=== PATIENT | male | born 1970 | race Caucasian/White ===

== ENCOUNTER 2020-01-25 02:41 | Observation (INO) | payer OTHER ==
[~2020-01-25] VITALS: Ht 175.3 cm; Wt 100.2 kg
[2020-01-25] VITALS (8 sets, daily range): BP systolic 113–148; BP diastolic 73–88
--- OUTSIDE RECORDS SUMMARY | 2020-01-25 02:44 | XMS REPORT | Continuity of Care Document ---
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 Allergies, Adverse Reactions, Alerts Allergy Name Allergy Type Status Severity Reaction(s) Onset Date Inacti ve Date Treating Clinician Comments Source Penicillins DA Active SV 2013-01-07 00:00:00 [facility] Medications This patient has no known medications. Procedures This patient has no known procedures. Results Test Description Test Time Test Comments Results Result Comments Source - MRI L-SPINE W/O CONT 2019-07-21 09:15:00 Kiya ent Name: BERNADETTE VELASQUEZ Unit No: [id number] EXAMS: CPT CODE: [id number] MRI L-SPINE W/O CONT 57521 TECHNIQUE: Multiplanar, multisequence MRI examination performed of the lumbar spine without intravenous contrast material. COMPARISON: Concurrent radiograph FINDINGS: Five lumbar type vertebra are assumed. Alignment: Grade 1 retrolisthesis of L4-L5 and L5-S1 Bone Lesion: No suspicious osseous lesion. Fracture: None present. Paraspinal Soft Tissues: Unremarkable. Conus Medullaris: Termination at L1 level. Morphology is normal. L1/2: No significa nt abnormality. L2/3: No significant abnormality. L3/4: No significant disc bulge or herniation. Bilateral facet hypertrophy. No foraminal or central canal stenosis. L4/5: Grade 1 retrolisthesis. Disc desiccation and broad bulge with posterior annular fissure. There is a suspected left foraminal disc protrusion (sagittal T2 image 3) measuring 4 mm, which abuts the left L4 nerve. Bilateral facet hypertrophy and ligamentum flavum thickening. Mild to moderate central canal stenosis is noted as well as moderate bilateral foraminal stenosis. L5/S1: Grade 1 retrolisthesis. Marked disc degeneration with endplate marrow changes and diffuse disc bulge. Mild bilateral foraminal stenosis is greater on the left. No significant central canal stenosis. IMPRESSION: Lower lumbar spondylosis with suspected left foraminal disc protrusion L4-L5 impinging the left L4 nerve. at 0915 Reported and signed by: Gavino Corey M.D. CC: Christian Mendoza MD Technologist: PITER BARBER MRI Transcribed D/ (914) Yang [facility] NAME: BERNADETTE VELASQUEZ [address] [facility] PHYS: Christian Severino MD : 1970 AGE: 48 SEX: M [place] [address] LOC: Y.MRI PHONE #: [phone] EXAM DATE: 07/16/2019 STATUS: DEP CLI FAX #: [phone] RAD #: D/C DT PAGE 1 Signed Report Patient Name: BERNADETTE VELASQUEZ Unit No: [id number] EXAMS: CPT CODE: [id number] MRI L-SPINE W/O CONT 59705 <Continued> Orig Print D/T: S: 07/21/2019 (917) [facility] NAME: BERNADETTE VELASQUEZ [address] [facility] PHYS: Christian Severino MD : 1970 AGE: 48 SEX: M [place] [address] LOC: Y.MRI PHONE #: [phone] EXAM DATE: 07/16/2019 STATUS: DEP CLI FAX #: [phone] RAD #: D/C DT PAGE 2 Signed Report - XR L-SPINE W/BEND VIEW 2019-07-15 10:05:00 Pa tient Name: BERNADETTE VELASQUEZ Unit No: [id number] EXAMS: CPT CODE: [id number] XR L-SPINE W/BEND VIEW 97946 LUMBAR SPINE 5 VIEWS PLUS FLEXION AND EXTENSION COMMENT: COMPARISON: No prior exams available. Vertebral body heights are maintained. There is endplate degenerative change and interspace narrowing from L4 to S1. No abnormal motion is seen with flexion and extension. at 1005 Reported and signed by: Benitez Donaldson MD CC: Christian Mendoza MD Technologist: Elma Ghosh RT.(R) Transcribed D/ (1007) SaigeL [facility] NAME: BERNADETTE VELASQUEZ [address] [facility] PHYS: Christian Severino MD : 1970 AGE: 48 SEX: M [place] [address] LOC: Y.MRI PHONE #: [phone] EXAM DATE: 07/14/2019 STATUS: DEP CLI FAX #: [phone] RAD #: D/C DT PAGE 1 Signed Report Patient Name: BERNADETTE VELASQUEZ Unit No: [id number] EXAMS: CPT CODE: [id number] XR L-SPINE W/BEND VIEW 99118 <Continued> Orig Print D/T: S: 07/15/2019 (1001) [facility] NAME: BERNADETTE VELASQUEZ [address] [facility] PHYS: Christian Severino MD : 1970 AGE: 48 SEX: M [place] [address] LOC: Y.MRI PHONE #: [phone] EXAM DATE: 07/14/2019 STATUS: DEP CLI FAX #: [phone] RAD #: D/C DT PAGE 2 Signed Report
[2020-01-25] MEDS ORDERED: ONDANSETRON HCL INJ 2MG/ML 2ML 2 MG/ML VIAL IV STA (02:53)
--- NOTE | 2020-01-25 03:00 | Emergency Department Note ---
History of Present Illnes History of Present Illness Chief Complaint: Abdominal Complaints History of Present Illness This is a 49 year old male presents complaining of right lower quadrant abdominal pain since yesterday morning. States has felt queasy but denies actual vomiting or diarrhea. Denies fever. States that ibuprofen a couple times during the day yesterday did take the edge of the pain but the pain returns. . Historian: Patient Arrival Mode: Car Onset (how long ago): day(s) (1) Location: rlq Quality: pain Radiation: non-radiation Severity: moderate Onset quality: sudden Duration (how long): day(s) (1) Timing of current episode: constant Progression: unchanged Chronicity: new Context: recent illness, recent surgery Relieving factors: medication (ibuprofen) Exacerbating factors: none Associated symptoms: denies other symptoms Past Medical/Family History Physician Review I have reviewed the patient's past medical and family history. Any updates have been documented here. Past Medical History Recent Fever: No Clinical Suspicion of Infectio: No New/Unexplained Change in Ment: No Past Medical History: Hypertension, Hyperlipedemia Past Surgical History: T&A Other Surgery: knee Social History Smoking Cessation: Never Smoker Counseling Performed: No Alcohol Use: Occasional Any Illegal Drug Use: No TB Exposure/Symptoms: No Physically hurt or threatened: No Family History Family history of heart diseas: Yes Other family history htn Other Last Tetanus: utd Any Pre-Existing Lines (PICC,: No Is patient up to date on immun: No Last Flu: unk Last Pneumovax: unk Review of Systems Review of Systems Constitutional: no symptoms EENTM: no symptoms Cardiovascular: no symptoms Respiratory: no symptoms Gastrointestinal: as per HPI Genitourinary: no symptoms Musculoskeletal: no symptoms Neurological: no symptoms Psychological: no symptoms Endocrine: no symptoms Hematological/Lymphatic: no symptoms Review of other systems All other systems reviewed and negative. Physical Exam Related Data Allergies: Uncoded Allergies: PENICILLIN (Allergy, Unknown, 01/25/20) Triage Vital Signs Vital Signs Date Time Temp Pulse Resp B/P (MAP) Pulse Ox O2 Delivery O2 Flow Rate FiO2 01/25/20 02:49 98.8 71 20 173/99 100 Vital signs reviewed: Yes Physical Exam CONSTITUTIONAL Constitutional: well-developed, well-nourished HENT HENT: normocephalic, atraumatic, oropharynx clear/moist, nose normal HENT L/R: left ext ear normal, right ext ear normal EYES Eyes: PERRL, conjunctivae normal NECK Neck: ROM normal PULMONARY Pulmonary: effort normal, breath sounds normal CARDIOVASCULAR Cardiovascular: regular rhythm, heart sounds normal, capillary refill normal, normal rate GASTROINTESTINAL Abdominal: soft, bowel sounds normal, tender (moderate tenderness rlq at mcburney's point, no gaurding or rebound) GENITOURINARY Genitourinary: exam deferred SKIN Skin: warm, dry MUSCULOSKELETAL Musculoskeletal: ROM normal NEUROLOGICAL Neurological: alert, oriented x 3, no gross motor or sensory deficits PSYCHOLOGICAL Psychological: mood/affect normal, judgement normal Results Laboratory Laboratory Laboratory Tests Test 01/25/20 02:48 White Blood Count 15.13 x10e3/uL (4.8-10.8) Red Blood Count 5.53 x10e6/uL (4.3-5.7) Hemoglobin 16.1 g/dL (14.0-18.0) Hematocrit 48.7 % (38.2-49.6) Mean Corpuscular Volume 88.1 fL (81-99) Mean Corpuscular Hemoglobin 29.1 pg (28-32) Mean Corpuscular Hemoglobin Concent 33.1 g/dL (31-35) Red Cell Distribution Width 13.0 % (11.7-14.4) Platelet Count 218 x10e3/uL (140-360) Neutrophils (%) (Auto) 78.7 % (38.7-80.0) Lymphocytes (%) (Auto) 12.4 % (18.0-39.1) Monocytes (%) (Auto) 7.5 % (4.4-11.3) Eosinophils (%) (Auto) 0.3 % (0.0-6.0) Basophils (%) (Auto) 0.4 % (0.0-1.0) Neutrophils # (Auto) 11.9 (2.1-6.9) Lymphocytes # (Auto) 1.9 (1.0-3.2) Monocytes # (Auto) 1.1 (0.2-0.8) Eosinophils # (Auto) 0.1 (0.0-0.4) Basophils # (Auto) 0.1 (0.0-0.1) Absolute Immature Granulocyte (auto 0.10 x10e3/uL (0-0.1) Urine Color Yellow (YELLOW) Urine Clarity Clear (CLEAR) Urine pH 7 (5 - 7) Urine Specific [place] 1.030 (1.010-1.025) Urine Protein Negative (NEGATIVE) Urine Glucose (UA) Negative (NEGATIVE) Urine Ketones Negative (NEGATIVE) Urine Blood Negative (NEGATIVE) Urine Nitrite Negative (NEGATIVE) Urine Bilirubin Negative (NEGATIVE) Urine Urobilinogen 0.2 mg/dL (0.2 - 1) Urine Leukocyte Esterase Negative (NEGATIVE) Urine RBC None /HPF (0-5) Urine WBC 0-5 /HPF (0-5) Urine Epithelial Cells Rare /LPF (NONE) Urine Bacteria Few /HPF (NONE) Sodium Level 138 mmol/L (136-145) Potassium Level 4.2 mmol/L (3.5-5.1) Chloride Level 102 mmol/L (98-107) Carbon Dioxide Level 26 mmol/L (22-29) Anion Gap 14.2 mmol/L (8-16) Blood Urea Nitrogen 12 mg/dL (7-26) Creatinine 1.23 mg/dL (0.72-1.25) Estimat Glomerular Filtration Rate > 60 ML/MIN (60-) BUN/Creatinine Ratio 10 (6-25) Glucose Level 96 mg/dL (74-118) Calcium Level 9.6 mg/dL (8.4-10.2) Total Bilirubin 1.1 mg/dL (0.2-1.2) Aspartate Amino Transf (AST/SGOT) 28 IU/L (5-34) Alanine Aminotransferase (ALT/SGPT) 39 IU/L (0-55) Alkaline Phosphatase 76 IU/L (40-150) Total Protein 7.8 g/dL (6.5-8.1) Albumin 4.4 g/dL (3.5-5.0) Globulin 3.4 g/dL (2.3-3.5) Albumin/Globulin Ratio 1.3 (0.8-2.0) Amylase Level 63 U/L (25-125) Lipase 52 U/L (8-78) Lab results reviewed: Yes Imaging Imaging results reviewed: Yes Impressions Procedure: [id number] CT/CT ABDOMEN/PELVIS W Exam Date: Exam Time: REPORT STATUS: Signed CT Abdomen And Pelvis with Intravenous Contrast INDICATION: Right lower quadrant pain, leukocytosis ^rlq pain ^Y TECHNIQUE: Thin collimation axial images obtained from the diaphragm to the level of the pubic symphysis following the uneventful administration of 100 cc of low osmolar, nonionic intravenous contrast. Dose reduction techniques used: Automated exposure control, adjustment of the mAs and/or kVp according to patient size, standardized low-dose protocol, and/or iterative reconstruction technique. RADIATION DOSE: Total DLP: 570.18 mGy*cm Estimated effective dose: (DLP x 0.015 x size factor) mSv CTDIvol has been reviewed. It is below the limits set by the Radiation Protocol Committee (RPC). COMPARISON: None. ABDOMEN FINDINGS: Lung Bases: Clear. The visualized portions of the mediastinum are normal. Liver: Normal attenuation. No evidence for mass. Gallbladder: Present and appears normal. No biliary ductal dilatation. Pancreas: Normal attenuation without mass or ductal dilatation. Spleen: Measures 15 cm in length. No mass. Adrenal Glands: No evidence for mass. Kidneys: Right: Normal enhancement. No soft tissue mass. No hydronephrosis. Left: Normal enhancement. No soft tissue mass. No hydronephrosis. Lymph Nodes: No lymphadenopathy. Aorta: Normal in diameter PELVIS FINDINGS: Bowel: Stomach: Normal. Small Bowel: Normal in caliber with normal wall thickness. Large Bowel: Normal in caliber with normal wall thickness. Appendix: Measures 2.2 cm in diameter with mucosal hyperemia and periappendiceal inflammation. Bladder: Mildly underdistended. Prostate: Mildly enlarged with calcifications of the central gland Peritoneum/retroperitoneum: No loculated fluid collection or free air. Bones: Mild degenerative changes at L5-S1. Soft tissues: Fat-containing of focal hernia measures 1.2 cm. IMPRESSION: 1. Acute appendicitis. No evidence of perforation. 2. Splenomegaly. No lymphadenopathy. Signed by: Dr. Nunu Oliva MD on 01/25/2020 4:49 AM Dictated By: NUNU OLIVA MD 8 Transcribed By: HEENA on 01/25/20448 COPY TO: PO CAPONE MD~ Critical Care Time Subsequent provider I assumed direction of critical care for this patient from another provider of my specialty. Assessment & Plan Assessment & Plan Final Impression: (1) Appendicitis Assessment & Plan Patient with right lower quadrant pain for one day. CBC, CMP, amylase, lipase, UA, CT abdomen and pelvis ordered to evaluate for pancreatitis, appendicitis, UTI, hematuria. Morphine 4 mg IV ordered. Zofran 4 mg IV ordered. Patient found to have acute appendicitis on CAT scan.. I spoke with Dr. Monica Jameson and the patient inpatient start patient on Levaquin and Flagyl keep nothing by mouth. Depart Disposition: ADMITTED Last Vital Signs Date Time Temp Pulse Resp B/P (MAP) Pulse Ox O2 Delivery O2 Flow Rate FiO2 01/25/20 02:49 98.8 71 20 173/99 100 Home Meds Reported Medications Multivitamin (MULTIVITAMINS) 1 Each Capsule, 1 TAB PO DAILY 01/25/20 [Dim] No Conflict Check, 300 MG PO DAILY 01/25/20 Anastrozole (ARIMIDEX) 1 Mg Tab, 1 MG PO UD 01/25/20 Aspirin (ASPIRIN EC) 81 Mg Tablet.dr, 81 MG PO DAILY, #30 TAB 01/25/20 Omeprazole (OMEPRAZOLE) 40 Mg Capsule.dr, 40 MG PO PRN 01/25/20 Rosuvastatin Calcium (CRESTOR) 10 Mg Tab, 10 MG PO DAILY THERAPEUTICALLY SUBSTITUTED WITH SIMVASTATIN 40MG 01/25/20 Amlodipine Besylate (AMLODIPINE BESYLATE) 10 Mg Tablet, 10 MG PO DAILY, #30 TAB 01/25/20 Medications in the ED Morphine Sulfate 4 mg NOW STAT IV ; Start 01/25/20 at 02:53; Stop 01/25/20 at 02:54; Status UNV Ondansetron HCl 4 mg NOW STAT IV ; Start 01/25/20 at 02:53; Stop 01/25/20 at 02:54; Status UNV PO CAPONE MD Jan 25, 2020 03:00
[2020-01-25] MEDS ORDERED: MORPHINE SULFATE INJ 4 MG/ML INJ 1ML IV STA (03:03)
[2020-01-25] MEDS ORDERED: MORPHINE SULFATE INJ 4 MG/ML INJ 1ML ONE (03:07)
[2020-01-25 03:11] LABS: BASOPHILS # (AUTO) 0.1 (0.0-0.1); BASOPHILS % 0.4 % (0.0-1.0); EOSINOPHILS # (AUTO) 0.1 (0.0-0.4); EOSINOPHILS % 0.3 % (0.0-6.0); HEMATOCRIT 48.7 % (38.2-49.6); HEMOGLOBIN 16.1 g/dL (14.0-18.0); LYMPHOCYTES # (AUTO) 1.9 (1.0-3.2); LYMPHOCYTES % 12.4 % (18.0-39.1); MEAN CORPUSCULAR HEMOGLOBIN 29.1 pg (28-32); MEAN CORPUSCULAR HGB CONC 33.1 g/dL (31-35); MEAN CORPUSCULAR VOLUME 88.1 fL (81-99); MONOCYTES # (AUTO) 1.1 (0.2-0.8); MONOCYTES % 7.5 % (4.4-11.3); NEUTROPHILS # (AUTO) 11.9 (2.1-6.9); NEUTROPHILS % 78.7 % (38.7-80.0); PLATELET COUNT 218 x10e3/uL (140-360); RED BLOOD COUNT 5.53 x10e6/uL (4.3-5.7)
[2020-01-25] MEDS ORDERED: ARIMIDEX1 MG PO (03:19)
[2020-01-25] MEDS ORDERED: CRESTOR10 MG PO (03:19)
[2020-01-25] MEDS ORDERED: OMEPRAZOLE40 MG PO (03:19)
[2020-01-25] MEDS ORDERED: ASPIRIN EC81 MG PO (03:19)
[2020-01-25] MEDS ORDERED: MULTIVITAMINS1 EAC7 PO (03:19)
[2020-01-25] MEDS ORDERED: AMLODIPINE BESY10 MG PO (03:19)
[2020-01-25] MEDS ORDERED: DIM PO (03:19)
[2020-01-25 03:25] LABS: ALANINE AMINOTRANSFERASE 39 IU/L (0-55); ALBUMIN 4.4 g/dL (3.5-5.0); ALBUMIN/GLOBULIN RATIO 1.3 (0.8-2.0); ALKALINE PHOSPHATASE 76 IU/L (40-150); ANION GAP 14.2 mmol/L (8-16); BLOOD UREA NITROGEN 12 mg/dL (7-26); BUN/CREATININE RATIO 10 (6-25); CALCIUM 9.6 mg/dL (8.4-10.2); CARBON DIOXIDE 26 mmol/L (22-29); CHLORIDE 102 mmol/L (98-107); CREATININE, SERUM 1.23 mg/dL (0.72-1.25); EST GLOMERULAR FILTRATION RATE > 60 ML/MIN (60-); GLUCOSE 96 mg/dL (74-118); POTASSIUM 4.2 mmol/L (3.5-5.1); SODIUM 138 mmol/L (136-145)
[2020-01-25 03:26] LABS: AMYLASE 63 U/L (25-125); LIPASE 52 U/L (8-78)
[2020-01-25] MEDS ORDERED: KETOROLAC TROMETHAMINE 30 MG/ML VIAL IV STA (03:33)
[2020-01-25 03:52] LABS: CLARITY,URINE CLEAR (CLEAR); LEUKOCYTE ESTERASE ,URINE NEGATIVE (NEGATIVE); NITRITE,URINE NEGATIVE (NEGATIVE)
[2020-01-25 03:53] LABS: BACTERIA,URINE FEW /HPF; BILIRUBIN,URINE NEGATIVE (NEGATIVE); COLOR,URINE YELLOW (YELLOW); EPITHELIAL CELLS,URINE RARE /LPF; KETONES,URINE NEGATIVE (NEGATIVE); PROTEIN,URINE DIPSTICK NEGATIVE (NEGATIVE); URINE UROBILINOGEN 0.2 mg/dL (0.2 - 1); WBC,URINE (MAN) 0-5 /HPF (0-5)
--- NOTE | 2020-01-25 04:52 | Diagnostic Imaging Report ---
CT Abdomen And Pelvis with Intravenous Contrast INDICATION: Right lower quadrant pain, leukocytosis ^rlq pain ^Y TECHNIQUE: Thin collimation axial images obtained from the diaphragm to the level of the pubic symphysis following the uneventful administration of 100 cc of low osmolar, nonionic intravenous contrast. Dose reduction techniques used: Automated exposure control, adjustment of the mAs and/or kVp according to patient size, standardized low-dose protocol, and/or iterative reconstruction technique. RADIATION DOSE: Total DLP: 570.18 mGy*cm Estimated effective dose: (DLP x 0.015 x size factor) mSv CTDIvol has been reviewed. It is below the limits set by the Radiation Protocol Committee (RPC). COMPARISON: None. ABDOMEN FINDINGS: Lung Bases: Clear. The visualized portions of the mediastinum are normal. Liver: Normal attenuation. No evidence for mass. Gallbladder: Present and appears normal. No biliary ductal dilatation. Pancreas: Normal attenuation without mass or ductal dilatation. Spleen: Measures 15 cm in length. No mass. Adrenal Glands: No evidence for mass. Kidneys: Right: Normal enhancement. No soft tissue mass. No hydronephrosis. Left: Normal enhancement. No soft tissue mass. No hydronephrosis. Lymph Nodes: No lymphadenopathy. Aorta: Normal in diameter PELVIS FINDINGS: Bowel: Stomach: Normal. Small Bowel: Normal in caliber with normal wall thickness. Large Bowel: Normal in caliber with normal wall thickness. Appendix: Measures 2.2 cm in diameter with mucosal hyperemia and periappendiceal inflammation. Bladder: Mildly underdistended. Prostate: Mildly enlarged with calcifications of the central gland Peritoneum/retroperitoneum: No loculated fluid collection or free air. Bones: Mild degenerative changes at L5-S1. Soft tissues: Fat-containing of focal hernia measures 1.2 cm. IMPRESSION: 1. Acute appendicitis. No evidence of perforation. 2. Splenomegaly. No lymphadenopathy. Signed by: Dr. Bradley Oliva MD on 01/25/2020 4:49 AM
[2020-01-25] MEDS: SODIUM CHLORIDE 0.9% 1000ML 1,000 ML IV SCH ×3 (05:20→23:51)
[2020-01-25] MEDS: LEVOFLOXACIN 500MG/D5W 100ML 100 ML IV SCH (05:20)
--- NOTE | 2020-01-25 05:20 | NUR ---
Patient swabbed for COVID-19 at this time.
--- OUTSIDE RECORDS SUMMARY | 2020-01-25 05:26 | XMS REPORT | Continuity of Care Document ---
Author Author [facility] t Organization [facility] Address [address] [place] [address] Phone Unavailable Care Team Providers Care Hearing Aid Fitter Name Role Phone Varun CAPONE Unavailable Payers Payer Name Policy Type Policy Number Effective Date Expiration Date S ource Problems This patient has no known problems. Allergies, Adverse Reactions, Alerts Allergy Name Allergy Type Status Severity Reaction(s) Onset Date Inacti ve Date Treating Clinician Comments Source Penicillins DA Active SV 2013-01-07 00:00:00 [facility] Medications This patient has no known medications. Procedures This patient has no known procedures. Results Test Description Test Time Test Comments Results Result Comments Source CT ABDOMEN/PELVIS W 2020-01-25 04:44:00 [facility] [address] [place] [address] Patient Name: BERNADETTE VELASQUEZ MR #: [id number] : 1970 Age/Sex: 49/M Req #: [id number] Adm Physician: Ordered by: PO CAPONE MD Report #: [id number] Location: ER Room/Bed: Procedure: CT/CT ABDOMEN/PELVIS W Exam Date: Exam Time: REPORT STATUS: Signed CT Abdomen And Pelvis with Intravenous Contrast INDICATION: Right lower quadrant pain, leukocytosis rlq pain Y TECHNIQUE: Thin collimation axial images obtained from the diaphragm to the level of the pubic symphysis following the uneventful administration of 100 cc of low osmolar, nonionic intravenous contrast. Dose reduction techniques used: Automated exposure control, adjustment of the mAs and/or kVp according to patient size, standardized low-dose protocol, and/or iterative reconstruction technique. RADIATION DOSE: Total DLP: 570.18 mGy*cm Estimated effective dose: (DLP x 0.015 x size factor) mSv CTDIvol has been reviewed. It is below the limits set by the Radiation Protocol Committee (RPC). COMPARISON: None. ABDOMEN FINDINGS: Lung Bases: Clear. The visualized portions of the mediastinum are normal. Liver: Normal attenuation. No evidence for mass. Gallbladder: Present and appears normal. No biliary ductal dilatation. Pancreas: Normal attenuation without mass or ductal dilatation. Spleen: Measures 15 cm in length. No mass. Adrenal Glands: No evidence for mass. Kidneys: Right: Normal enhancement. No soft tissue mass. No hydronephrosis. Left: Normal enhancement. No soft tissue mass. No hydronephrosis. Lymph Nodes: No lymphadenopathy. Aorta: Normal in diameter PELVIS FINDINGS: Bowel: Stomach: Normal. Small Bowel: Normal in caliber with normal wall thickness. Large Bowel: Normal in caliber with normal wall thickness. Appendix: Measures 2.2 cm in diameter with mucosal hyperemia and periappendic eal inflammation. Bladder: Mildly underdistended. Prostate: Mildly enlarged with calcifications of the central gland Peritoneum/retroperitoneum: No loculated fluid collection or free air. Bones: Mild degenerative changes at L5-S1. Soft tissues: Fat-containing of focal hernia measures 1.2 cm. IMPRESSION: 1. Acute appendicitis. No evidence of perforation. 2. Splenomegaly. No lymphadenopathy. Signed by: Dr. Nunu Oliva MD on 01/25/2020 4:49 AM Dictated By: NUNU OLIVA MD 8 Tra nscribed By: HEENA on 01/25/20448 COPY TO: PO CAPONE MD - MRI L-SPINE W/O CONT 2019-07-21 09:15:00 Kiya ent Name: BERNADETTE VELASQUEZ Unit No: [id number] EXAMS: CPT CODE: [id number] MRI L-SPINE W/O CONT 15612 TECHNIQUE: Multiplanar, multisequence MRI examination performed of [...] and signed by: Gavino Corey M.D. CC: Po Mendoza MD Technologist: PITER BARBER Transcribed D/ (0915) [facility]: [facility]TE VELASQUEZ [address] [facility] PHYS: Po Severino MD : 1970 AGE: 48 SEX: [place], [place] [address] LOC: Y.MRI PHONE #: [phone] EXAM DATE: 07/16/2019 STATUS: DEP CLI FAX #: [phone] RAD #: D/C DT PAGE 1 Signed Report Patient Name: BERNADETTE VELASQUEZ Unit No: [id number] EXAMS: CPT CODE: [id number] MRI L-SPINE W/O CONT [id number] <Continued> Orig Print D/T: S: 07/21/2019 (0918) [facility] NAME: BERNADETTE VELASQUEZ [address] [facility] PHYS: Po Severino MD : 1970 AGE: 48 SEX: M [place] [address] LOC: Y.MRI PHONE #: [phone] EXAM DATE: 07/16/2019 STATUS: DEP CLI FAX #: [phone] RAD #: D/C DT PAGE 2 Signed Report - XR L-SPINE W/BEND VIEW 2019-07-15 10:05:00 Pa tient Name: BERNADETTE VELASQUEZ Unit No: [id number] EXAMS: CPT CODE: [id number] XR L-SPINE W/BEND VIEW 90117 LUMBAR SPINE 5 VIEWS PLUS FLEXION AND EXTENSION COMMENT: COMPARISON: No prior exams available. Vertebral body heights are maintained. There is endplate degenerative change and interspace narrowing from L4 to S1. No abnormal motion is seen with flexion and extension. at 1005 Reported and signed by: Benitez Donaldson MD CC: Po Mendoza MD Technologist: RT Paddy.(R) Transcribed D/ (1005) [email or web address] [facility] NAME: BERNADETTE VELASQUEZ [address] [facility] PHYS: Po Severino MD : 1970 AGE: 48 SEX: M [place] [address] LOC: Y.MRI PHONE #: [phone] EXAM DATE: 07/14/2019 STATUS: DEP CLI FAX #: [phone] RAD #: D/C DT PAGE 1 Signed Report Patient Name: BERNADETTE VELASQUEZ Unit No: [id number] EXAMS: CPT CODE: [id number] XR L-SPINE W/BEND VIEW 25209 <Continued> Orig Print D/T: S: 07/15/2019 (1009) [facility] NAME: BERNADETTE VELASQUEZ [address] [facility] PHYS: Po Severino MD : 1970 AGE: 48 SEX: [place], [place] [address] LOC: Y.MRI PHONE #: [phone] EXAM DATE: 07/14/2019 STATUS: DEP CLI FAX #: [phone] RAD #: D/C DT PAGE 2 Signed Report
[2020-01-25] MEDS: HYDROMORPHONE 1MG/1ML INJ IV PRN ×3 (06:25→19:33)
[2020-01-25] MEDS: ONDANSETRON HCL INJ 2MG/ML 2ML 2 MG/ML VIAL IV PRN ×3 (06:25→19:33)
[2020-01-25] MEDS: METRONIDAZOLE 500MG/NS 100ML 100 ML IV SCH ×4 (06:34→23:51)
--- NOTE | 2020-01-25 07:00 | NUR ---
Received bedside shift report from off going night nurse. Patient in stable condition, no s/s of distress noted. No pain voiced. IV fluids infusing. Bed in lowest position and locked. Call light within reach.
[2020-01-25] MEDS ORDERED: IOPAMIDOL 370 MG/ML 200 ML INFUS..BTL INJ ONE (07:27)
[2020-01-25] MEDS ORDERED: SODIUM CHLORIDE 0.9% 50ML 50 ML ONE (07:28)
[2020-01-25] MEDS ORDERED: SUGAMMADEX SODIUM 200 MG/2 ML VIAL IV ONE (12:48)
[2020-01-25] MEDS ORDERED: BUPIVACAINE 0.25%/EPI 30ML SDV INJ ONE (13:23)
[2020-01-25] MEDS ORDERED: ACETAMINOPHEN 1000 MG/100 ML IV PRN (13:45)
[2020-01-25] MEDS ORDERED: HYDROCODONE/APAP 7.5MG-325MG 1 EA TAB PO PRN (13:45)
[2020-01-25] MEDS ORDERED: MIDAZOLAM HCL 2 MG/2 ML VIAL ONE (15:20)
[2020-01-25] MEDS ORDERED: KETAMINE HCL INJ 50 MG/ML 10 ML VIAL ONE (15:20)
[2020-01-25] MEDS ORDERED: FENTANYL CITRATE/PF 100MCG/2 ML INJ ONE (15:20)
[2020-01-25] MEDS ORDERED: ROCURONIUM BROMIDE 10 MG/ML 5ML VIAL IV ONE (15:24)
[2020-01-25] MEDS ORDERED: DEXAMETHASONE SOD PHOS INJ 4 MG/ML VIAL ONE (15:24)
[2020-01-25] MEDS ORDERED: LIDOCAINE HCL 2% LOCAL INJ 5 ML SDV VIAL INJ ONE (15:24)
[2020-01-25] MEDS ORDERED: ETOMIDATE 2 MG/ML 10 ML INJ IV ONE (15:24)
[2020-01-25] MEDS ORDERED: SEVOFLURANE INHAL SOLN 250 ML PEN BTL ONE (15:24)
[2020-01-25] MEDS ORDERED: ONDANSETRON HCL INJ 2MG/ML 2ML 2 MG/ML VIAL ONE (15:24)
[2020-01-25] MEDS ORDERED: ACETAMINOPHEN 1000 MG/100 ML IV ONE (15:24)
--- NOTE | 2020-01-25 15:59 | Operative Report ---
DATE OF PROCEDURE: 01/25/2020 SURGEON: Maxwell Jameson MD PREOPERATIVE DIAGNOSIS: Acute appendicitis. POSTOPERATIVE DIAGNOSIS: Acute appendicitis. OPERATION PERFORMED: Laparoscopic appendectomy. ANESTHESIA: General. COMPLICATIONS: None. ESTIMATED BLOOD LOSS: Minimal. DESCRIPTION OF PROCEDURE: With the patient lying in bed in the supine position under good general endotracheal anesthesia, the abdomen was prepped with Betadine solution and draped in the usual manner. A Veress needle was introduced into the umbilicus and pneumoperitoneum was established without any difficulty. A 12 mm trocar was placed into the umbilicus and a 10 mm video laparoscope was placed into the intraabdominal cavity. Under direct vision, a 5 mm trocar was placed in the suprapubic region and another 5 mm trocar was placed in the left lower quadrant. Video laparoscopy at this point revealed an acutely inflamed pre-gangrenous appendix, that was partially retrocecal and stuck to the lateral wall. There was some small amount of fluid in the abdominal cavity, but there was no overt sign of perforation. The appendix was then from the lateral gutter and similarly from the terminal ileum. After this was done, the base of the appendix was then dissected without any difficulty and the base of the appendix and the cecum were divided with an application of the Endo-SANDRA stapler. The mesentery of the appendix was divided with an application of the Endo-SANDRA vascular stapler. The appendix was placed in a pouch and removed through the umbilicus without any difficulty. Video laparoscopy was then again carried out. The surgical site was inspected. Perfect hemostasis was ascertained. The whole abdomen was then thoroughly irrigated. All of the excess fluid was aspirated. The pneumoperitoneum was evacuated and all the trocars were removed under direct vision. Midline fascia at the umbilicus was then closed with a lnzmhl-ku-qrzso of 0 Vicryl. All layers were infiltrated on the way out with solution of 0.25% Marcaine. Subcutaneous tissue was approximated with 3-0 Vicryl and the skin was closed with subcuticular 5-0 Vicryl. Benzoin, Steri-Strips, and Band-Aids were applied. The sponge, lap, and needle counts were correct. The patient tolerated the procedure well and returned to the recovery room in stable condition. MD CATHIE Bush/LYN /[id number]
--- NOTE | 2020-01-25 18:52 | NUR ---
Completed bedside shift report and rounding with oncoming night nurse. Patient in stable condition, no s/s of distress noted. No pain voiced. IV fluids infusing, site asymptomatic and patent. Bed in lowest position and locked. Call light within reach.
[2020-01-26 00:22] VITALS: BP 103/63
[2020-01-26] MEDS: HYDROMORPHONE 1MG/1ML INJ IV PRN (00:58)
[2020-01-26] MEDS: ONDANSETRON HCL INJ 2MG/ML 2ML 2 MG/ML VIAL IV PRN (00:58)
[2020-01-26 05:04] LABS: BASOPHILS % 0.1 % (0.0-1.0); EOSINOPHILS % 0.1 % (0.0-6.0); HEMATOCRIT 40.9 % (38.2-49.6); HEMOGLOBIN 13.4 g/dL (14.0-18.0); LYMPHOCYTES % 6.6 % (18.0-39.1); MEAN CORPUSCULAR HEMOGLOBIN 29.1 pg (28-32); MEAN CORPUSCULAR HGB CONC 32.8 g/dL (31-35); MEAN CORPUSCULAR VOLUME 88.9 fL (81-99); MONOCYTES % 6.8 % (4.4-11.3); NEUTROPHILS # (AUTO) 12.3 (2.1-6.9); NEUTROPHILS % 85.9 % (38.7-80.0); PLATELET COUNT 185 x10e3/uL (140-360); RED CELL DISTRIBUTION WIDTH 12.9 % (11.7-14.4)
[2020-01-26] MEDS: LEVOFLOXACIN 500MG/D5W 100ML 100 ML IV SCH (05:10)
[2020-01-26 05:23] LABS: ALANINE AMINOTRANSFERASE 27 IU/L (0-55); ALBUMIN 3.2 g/dL (3.5-5.0); ALKALINE PHOSPHATASE 60 IU/L (40-150); ANION GAP 13.3 mmol/L (8-16); BLOOD UREA NITROGEN 12 mg/dL (7-26); BUN/CREATININE RATIO 10 (6-25); CALCIUM 8.5 mg/dL (8.4-10.2); CARBON DIOXIDE 23 mmol/L (22-29); CHLORIDE 106 mmol/L (98-107); CREATININE, SERUM 1.18 mg/dL (0.72-1.25); EST GLOMERULAR FILTRATION RATE > 60 ML/MIN (60-); GLUCOSE 117 mg/dL (74-118); POTASSIUM 4.3 mmol/L (3.5-5.1); SODIUM 138 mmol/L (136-145)
[2020-01-26 05:28] VITALS: BP 126/78
[2020-01-26] MEDS: METRONIDAZOLE 500MG/NS 100ML 100 ML IV SCH (05:56)
--- NOTE | 2020-01-26 06:28 | NUR ---
patient is resting in the bed. no signs of distress noted. bed is in lowest position.
--- NOTE | 2020-01-26 07:00 | NUR ---
RECEIVED PATIENT AWAKE RESTING IN BED NO S/S OF DISTRESS. BED LOW, WHEELS LOCKED, SIDE RAILS X2. CALL LIGHT IN REACH WILL CONTINUE TO MONITOR PATIENT.
[2020-01-26 08:46] VITALS: BP 140/87
[2020-01-26 08:49] VITALS: BP 140/87
[2020-01-26] MEDS ORDERED: AMLODIPINE BESYLATE 10 MG TAB PO SCH (09:00)
[2020-01-26] MEDS: SODIUM CHLORIDE 0.9% 1000ML 1,000 ML IV SCH (10:04)
[2020-01-26] MEDS ORDERED: NORCO 7.5-3251 EACH PO (11:47)
[2020-01-26] MEDS ORDERED: LEVAQUIN500 MG PO (11:48)
--- NOTE | 2020-01-26 12:05 | NUR ---
REMOVED PATIENTS IV. CATHETER TIP INTACT AND PRESSURE DRESSING APPLIED.
[2020-01-26 12:15] VITALS: BP 140/87
--- NOTE | 2020-01-26 12:15 | NUR ---
PATIENT DISCHARGED FROM FACILITY. PATIENT GATHERED ALL PERSONAL BELONGINGS, DISCHARGE INSTRUCTIONS, AND FOLLOW UP INFORMATION. PATIENT LEFT UNIT IN WHEELCHAIR AND WENT HOME VIA PRIVATE AUTO. NO S/S OF DISTRESS LEAVING FACILITY.
== END 2020-01-26 12:22 | disposition home or self-care (01) ==
LOC: ER 02:41 → ERHOLD 05:24 → INTOOBSV 05:24 → MED/SURG 05:55
PROVIDERS: ADMIT Surgery; ATTEND Surgery
DX: K35.80 Unspecified acute appendicitis (principal); I10 Essential (primary) hypertension; E78.5 Hyperlipidemia, unspecified; Z88.0 Allergy status to penicillin
CPT/HCPCS: 36415 ×2; 44970; 74177; 80053 ×2; 81001; 82150; 83690; 85025 ×2; 87635; 88304; 99284; C1766; G0378 ×2; J0131; J1100; J1170 ×2; J1885; J1956 ×2; J2001; J2250; J2270; J2405 ×2; J3010; J7030 ×2; Q9967

== ENCOUNTER 2022-10-22 21:08 | Emergency (ER) | payer BC ==
[~2022-10-22] VITALS: Ht 175.3 cm; Wt 97.5 kg
[~2022-10-22 21:08] MED LIST: AMLODIPINE BESY10 MG PO; ARIMIDEX1 MG PO; ASPIRIN EC81 MG PO; CRESTOR10 MG PO; DIM PO; LEVAQUIN500 MG PO; MULTIVITAMINS1 EAC7 PO; NORCO 7.5-3251 EACH PO; OMEPRAZOLE40 MG PO
[2022-10-22 21:35] LABS: BASOPHILS % 0.4 % (0.0-1.0); EOSINOPHILS % 0.4 % (0.0-6.0); HEMATOCRIT 41.9 % (38.2-49.6); HEMOGLOBIN 14.5 g/dL (14.0-18.0); LYMPHOCYTES # (AUTO) 3.2 (1.0-3.2); LYMPHOCYTES % 30.2 % (18.0-39.1); MEAN CORPUSCULAR HEMOGLOBIN 29.9 pg (28-32); MEAN CORPUSCULAR HGB CONC 34.6 g/dL (31-35); MEAN CORPUSCULAR VOLUME 86.4 fL (81-99); MONOCYTES # (AUTO) 0.8 (0.2-0.8); MONOCYTES % 7.4 % (4.4-11.3); NEUTROPHILS # (AUTO) 6.5 (2.1-6.9); NEUTROPHILS % 61.2 % (38.7-80.0); PLATELET COUNT 293 x10e3/uL (140-360); RED BLOOD COUNT 4.85 x10e6/uL (4.3-5.7); RED CELL DISTRIBUTION WIDTH 13.6 % (11.7-14.4)
[2022-10-22 22:10] LABS: ALBUMIN 4.1 g/dL (3.5-5.0); ALBUMIN/GLOBULIN RATIO 1.4 (0.8-2.0); ANION GAP 12.9 mmol/L (8-16); CALCIUM 8.7 mg/dL (8.4-10.2); CREATININE, SERUM 1.17 mg/dL (0.72-1.25); POTASSIUM 3.9 mmol/L (3.5-5.1)
[2022-10-22] MEDS ORDERED: IOPAMIDOL 370 MG/ML 100 ML INFUS..BTL INJ ONE (22:48)
[2022-10-23 00:01] LABS: CREATINE KINASE MB 2.3 ng/mL (0-5.0)
[2022-10-23 01:08] VITALS: BP 132/94
== END 2022-10-23 01:12 | disposition home or self-care (01) ==
LOC: ER 21:11
DX: R20.2 Paresthesia of skin (principal); I10 Essential (primary) hypertension; E78.5 Hyperlipidemia, unspecified; F17.210 Nicotine dependence, cigarettes, uncomplicated
CPT/HCPCS: 36415; 70496; 70498; 80053; 82550; 82553; 84484; 85025; 93005; 99284; Q9967